=== PATIENT | female | born 2000 | race Caucasian/White ===

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

== ENCOUNTER 2024-01-02 11:00 | Outpatient (CLI) | payer OTHER, SELFPAY ==
--- NOTE | 2024-01-02 11:23 | XR_ITS ---
FINAL REPORT CLINICAL HISTORY: sob, cough COMPARISON: None FINDINGS: Two views of the chest were obtained. The heart size and pulmonary vascularity are within normal limits. The mediastinum is normal. No acute pulmonary abnormality is identified. There is no pneumothorax. The bony thorax is intact. IMPRESSION: No active cardiopulmonary disease. Reviewed, Interpreted and Dictated by Eber Mccain III, MD Transcribed by Beth Patterson Authenticated and . [facility]
[2024-01-02 11:46] LABS: Basophils % 0.4 % (0.1-2.0); Eosinophils # 0.1 K/mm3 (0.0-0.4); Eosinophils % 2.1 % (0.1-12.0); Hematocrit 39.9 % (37.0-47.0); Hemoglobin 13.4 g/dL (12.2-16.2); Lymphocytes # 1.7 K/mm3 (0.7-4.5); Lymphocytes % 25.6 % (10-50); Mean Corpuscular HGB Conc 33.7 g/dL (31.8-35.4); Mean Corpuscular Hemoglobin 30.4 pg (27.0-31.2); Mean Corpuscular Volume 90.4 fl (81-99); Mean Platelet Volume 7.4 fl (7.4-10.4); Monocytes # 0.3 K/mm3 (0.1-1.0); Monocytes % 3.9 % (1.7-9.3); Neutrophils # 4.6 K/mm3 (1.8-7.8); Neutrophils % 68.1 % (37.0-80.0); Platelet Count 333 K/mm3 (142-424); Red Blood Count 4.41 M/mm3 (4.20-5.40); Red Cell Distribution Width 14.2 % (11.5-17.5); White Blood Count 6.8 K/mm3 (4.8-10.8)
[2024-01-02 12:27] LABS: Alanine Aminotransferase 66 U/L (12-78); Albumin Level 4.7 g/dl (3.5-5.0); Albumin/Globulin Ratio 1.4 (1.1-1.8); Alkaline Phosphatase 95 U/L (38-126); Anion Gap 10.9 mEq/L (5-15); Aspartate Amino Transferase 47 U/L (14-36); Bilirubin,Total 0.6 mg/dl (0.2-1.3); Blood Urea Nitrogen 20 mg/dl (7-17); Calcium 9.5 mg/dl (8.4-10.2); Carbon Dioxide 26 mmol/L (22.0-30.0); Chloride 108 mmol/L (98-107); Chol/HDL Ratio 5.6 (1-3.5); Cholesterol 178 mg/dl (140-200); Estimated Glomerular Filt Rate 77 ml/min (>60); GFR (African American) 93 ML/MIN (>60); Globulin 3.4 g/dL (1.3-3.2); Glucose 116 mg/dl (74-100); HDL Cholesterol 32 mg/dl (40-60); Potassium 4.9 mmoL/L (3.5-5.1); Sodium 140 mmol/L (136-145); Total Protein,Serum 8.1 g/dl (6.3-8.2); Triglycerides 88 mg/dl (30-150); VLDL Cholesterol 18 mg/dL (0-40)
[2024-01-02 12:38] LABS: Direct LDL Cholesterol 114.81 mg/dL (100-129)
[2024-01-02 12:39] LABS: Hemoglobin A1C 5.6 % (4.0-6.0)
[2024-01-02 12:46] LABS: 25-OH Vitamin D, Total < 12.8 ng/mL (30-100)
[2024-01-02 12:58] LABS: Thyroid Stimulating Hormone 0.75 uIU/mL (0.465-4.68)
[2024-01-02 13:17] LABS: Vitamin B12 558 pg/mL (239-931)
== END 2024-01-02 23:59 ==
LOC: LAB 11:02
PROVIDERS: PCP Family Medicine; Visit Provider Family Medicine
DX: R06.02 Shortness of breath (principal); R05.8 Other specified cough; R01.1 Cardiac murmur, unspecified; E55.9 Vitamin D deficiency, unspecified; R73.09 Other abnormal glucose; E66.9 Obesity, unspecified; Z68.35 Body mass index [BMI] 35.0-35.9, adult
CPT/HCPCS: 36415; 71046; 80053; 80061; 82306; 82607; 83036; 84443; 85025

== ENCOUNTER 2024-01-09 12:05 | Outpatient (CLI) | payer OTHER, SELFPAY ==
[2024-01-09] MEDS: ALBUTEROL 0.083% 2.5 MG/3 ML NEB IH (14:15)
== END 2024-01-09 23:59 ==
LOC: RT 12:05
PROVIDERS: PCP Family Medicine; Visit Provider Family Medicine
DX: R06.02 Shortness of breath (principal); R05.9 Cough, unspecified
CPT/HCPCS: 94060; 94618; 94727; 94729

== ENCOUNTER 2024-01-20 10:06 | Outpatient (CLI) | payer OTHER, SELFPAY ==
--- NOTE | 2024-01-20 10:08 | CA_ITS ---
APPROVED REPORT EXAM: Comprehensive 2D, Doppler, and color-flow Echocardiogram Income Tax Consultant: RAGHAV Lopez, RVS Ht: 5 ft 2 in Wt: 193lbs BSA: 1.88 BP: 126/82 mmHg Indications: Murmur, SOB 2D Dimensions Left Atrium 3.10 cm LA Volume 27.20 mL LA Volume Index 14.10 mL/m2 (M/F) 16-34 M-Mode Dimensions RVDd 2.78 cm (0.9-2.6) LA Diam 3.67 cm (1.9-4.0) LVDd 3.69 cm (3.5-5.7) LVDs 2.65 cm (3.5-5.7) IVSd 1.51 cm (0.6-1.1) PWd 1.14 cm (0.6-1.1) EF (Teich) 55.40% EPSs 0.40 cm FS 28.20% EDV (Teich) 57.80 mL TAPSE 2.13 (<1.7) ESV (Teich) 25.80 mL LV Diastology E Decel Time 177 (160-240 msec) E/A Ratio 1.94 MED A' 6.40 cm/s LAT A' 7.80 cm/s Aortic Valve PATRICE Index 0.77 cm2/m2 AoV Peak Miles. 159.0 (50-130 cm/s) AO Peak GR. 10.10 mmHg AO Mean GR. 5.00 (<5 mmHg) AO VTI 35.9 (18-25 cm) PATRICE (VTI) 1.48 (2.5-4.5 cm2) Mitral Valve MV A Velocity 47.0 (40-130 cm/s) E/A Ratio 1.94 Tricuspid Valve TR P. Velocity 219.00 cm/s RAP Estimate 10.00 mmHg RVSP 29.30 mmHg Left Ventricle The left ventricle is normal size. The left ventricular systolic function is normal. The left ventricular ejection fraction is within the normal range. There is normal left ventricular wall thickness. There is normal LV segmental wall motion. The left ventricular diastolic function is normal. LVEF is 55%. Right Ventricle The right ventricle is normal size. The right ventricular systolic function is normal. Atria The left atrium size is normal. The right atrium size is normal. The interatrial septum is not well-visualized. Aortic Valve Aortic valve opens well. There is no aortic valvular stenosis. No aortic regurgitation is present. Mitral Valve The mitral valve is normal in structure. No evidence of mitral valve stenosis. There is no mitral valve regurgitation noted. Tricuspid Valve The tricuspid valve leaflets are thin and pliable. Trace tricuspid regurgitation. There is insufficient TR jet to estimate RVSP. Pulmonic Valve The pulmonary valve is normal in structure. Trace pulmonic regurgitation. Great Vessels The aortic root is normal in size. The ascending aorta is not well-visualized. The IVC is not well-visualized. Pericardium There is no pericardial effusion. Other Information Study Quality: Fair Conclusion Normal biventricular systolic function. No significant valvular stenosis or regurgitation. Electronically signed by : Akua Ahn MD 01/22/2024 11:37:52
== END 2024-01-20 23:59 ==
LOC: RT 10:08
PROVIDERS: PCP Family Medicine; Visit Provider Family Medicine
DX: R06.02 Shortness of breath (principal); R01.1 Cardiac murmur, unspecified; R05.9 Cough, unspecified
CPT/HCPCS: 93306

== ENCOUNTER 2025-04-12 01:46 | Emergency (ER) | payer OTHER, SELFPAY ==
[2025-04-12 02:03] VITALS: BP 133/89; PULSE 79; RESP 18; TEMP 36.6; O2SAT 99; BMI 34.5
--- NOTE | 2025-04-12 02:09 | XR_ITS ---
PROCEDURE INFORMATION: Exam: XR Left Ankle Exam date and time: 04/12/2025 2:24 AM Age: 24 years old Clinical indication: Pain; Ankle; Left; Additional info: Ankle injury TECHNIQUE: Imaging protocol: Radiologic exam of the left ankle. Views: 3 or more views. COMPARISON: No relevant prior studies available. FINDINGS: Bones/joints: There is no evidence of acute fracture or dislocation. Joint spaces appear preserved. Soft tissues: No significant soft tissue edema. No subcutaneous emphysema or radiopaque foreign bodies. IMPRESSION: No acute posttraumatic osseous injury.
[2025-04-12 02:30] VITALS: BP 133/70; PULSE 66; O2SAT 100
--- NOTE | 2025-04-12 03:55 | HMH.EDGENADL ---
Discharge Plan Disposition Patient Disposition: Home, Self-Care Condition: Good Prescriptions Prescriptions: No Action cholecalciferol (vitamin D3) 1,250 mcg (50,000 unit) capsule 1,250 mcg PO WEEKLY Qty: 5 10RF Referrals Follow up/Referrals: Provider,Referral, [Primary Care Provider] - See instructions Activity Restrictions/Add. Instructions Additional Instructions/Restrictions: You were evaluated in the ER and are appropriate for discharge at this time. Take Tylenol and ibuprofen if needed for pain, do not exceed the recommended dose on the bottle. Drink water and eat a small snack each time you take these medications to avoid side effects. Wear the provided brace if needed for support. Take the brace off multiple times a day and perform range of motion exercises as directed. Follow-up with your primary care doctor for reevaluation. Return to the ER with any new, worsening, or otherwise concerning symptoms. Clinical Impressions Clinical Impression: Ankle pain, left Print Language Print Language: Khmer Discharge ED Provider: Catina Callejas General Adult HPI General Chief complaint: Extremity Injury, Lower Stated complaint: Left ankle pain Time Seen by Provider: 04/12/25 03:15 Mode of Arrival: EMS Source of Information: Patient Description of Symptoms (Recalled from ER Triage Doc. by RN): Pt states she was walking dog on Friday and rolled her left ankle. Pt reports increased pain 8/10. No swelling or deformity noted. History of Present Illness HPI narrative: 24-year-old female presents to the ER with complaints of left ankle pain. Reportedly 2 days ago patient was walking her dog and rolled the left ankle. Patient has been ambulatory on the ankle since that time. Pain has not gone away and is described as 8 out of 10. Tonight patient decided to call 911 to come to the ER for ankle evaluation. EMS reports no swelling or deformity. No other traumatic findings, no other complaints or concerns. Patient reports no current medical problems, no pain in any area aside from the ankle. Related Data Previous Rx's ?Medication ?Instructions ?Recorded cholecalciferol (vitamin D3) 1,250 1,250 mcg PO WEEKLY #5 caps 02/02/24 mcg (50,000 unit) capsule Allergies Allergy/AdvReac Type Severity Reaction Status Date / Time amoxicillin (AMOXICILLIN) Allergy Intermediate I-RASH Verified 04/21/24 10:29 azithromycin (From ZITHROMAX) Allergy Intermediate Verified 04/21/24 10:29 [facility] Disclaimer: The information contained in this section may have been updated after the patient was seen, as this information can be updated by other users. Medical History Vitamin D deficiency Heart murmur Surgical History History of myringotomy History of tonsillectomy Family History Other Cancer Coronary artery disease Heart attack Hypertension Kidney disease Stroke Social History Smoking Status: Current every day smoker tobacco type: cigarettes smoking status start date: e years smoked: 6 smoking status stop date: 01/09/24 alcohol intake: never substance use type: denies use current occupational status: unemployed Travel in the last 8 weeks?: None household members: family housing: house Other Medical History Have you received the Flu Vaccine for this season: No Have you received the Pneumonia Vaccine: No ROS Obtained: Yes Systems reviewed as appropriate & no additional complaints except as documented Per HPI Physical Exam General General appearance: alert and in no apparent distress Head Head exam: atraumatic and normocephalic Eye Eye exam: Present PERRL and EOMI ENT ENT exam: Present mucous membranes moist Neck Neck exam: Present normal inspection and full ROM Chest Chest inspection: Present symmetric chest wall rise Respiratory Respiratory exam: Absent respiratory distress or stridor Cardiovascular Cardiovascular exam: Present regular rate and normal rhythm Extremities Exam Extremities exam: Present full ROM, tenderness (Mild tenderness to palpation diffusely throughout the ankle, Achilles tendon intact, no tenderness over the Achilles, patient has tenderness over both malleoli as well as the anterior/superior portion of the ankle and foot, no tenderness over the fifth metatarsal), normal capillary refill and other (Neurovascularly intact, no swelling, deformity, or bruising); Absent joint swelling Neurological Exam Neurological exam: Present alert and oriented X3; Absent motor sensory deficit Psychiatric Psychiatric exam: Present normal affect and normal mood Skin Skin exam: Present warm and dry Medical Decision Making Medical Records Medical records reviewed: Yes I reviewed the patient's medical records. Screening: Per USPSTF and CDC recommendations, given the prevalence of disease in our region, it is our hospital?s policy to screen for HIV and viral Hepatitis for all patients aged 18 and over and those with ongoing risk factors. Qu[place] Inquiry Pt receiving controlled substance: No Vital Signs: 04/12/25 02:03 04/12/25 02:30 Temperature 97.9 F Temperature Source Oral Pulse Rate 66 Pulse Rate [Left] 79 Respiratory Rate 18 Blood Pressure 133/70 Blood Pressure [Right Arm] 133/89 Blood Pressure Mean [Right Arm] 103 Blood Pressure Source [Right Arm] Automatic Cuff 02 Sat by Pulse Oximetry 99 100 Oxygen Delivery Method Room Air Room Air Orders (Tests/Meds): ORDERS Category Date Time Status Ankle XR - Left minimum 3 Views [XR ankle LT min 3V] Exams 04/12/25 02:09 Completed Stat Medical Decision Narrative: In summary, this 24-year-old female presents to the emergency department today with left ankle pain. On initial evaluation patient is hemodynamically stable, afebrile, physical exam is overall reassuring with no deformity, swelling, or bruising, however there is mild diffuse tenderness around the sides in front of the ankle, Achilles tendon intact, neurovascularly intact, no tenderness over the fifth metatarsal. Based on [place] ankle rules I have very low suspicion for ankle fracture however patient came concerned about fracture so x-ray was ordered. Differential diagnosis includes but is not limited to sprain, strain, soft tissue injury, much lower suspicion for fracture or dislocation. Ankle x-ray was personally interpreted and does not demonstrate acute osseous injury. I initially thought there could be a small abnormality of the lateral malleolus however this is only visible on 1 view and there does not appear to be a cortical defect. See radiology read for final interpretation. Patient continues to be stable on reassessment. Aircast brace was applied to the left ankle for support. Patient was given instructions on range of motion exercises. She stated she was ready to go home and is going to be walking home. This further decreases my concern for acute or dangerous injury since patient is volunteering to walk back home after being brought in by ambulance. Patient was given instructions on symptomatic management, follow up instructions, and return precautions for the emergency department. Patient indicated understanding and was discharged in stable condition. Critical Care Critical Care Time Critical Care Time: No
[2025-04-12 03:58] VITALS: BP 118/73; PULSE 68; RESP 16; TEMP 36.3; O2SAT 98
== END 2025-04-12 04:04 | disposition home or self-care (01) ==
PROVIDERS: Emergency Provider Emergency Medicine
DX: S99.912A Unspecified injury of left ankle, initial encounter (principal); M25.572 Pain in left ankle and joints of left foot; X50.1XXA Overexertion from prolonged static or awkward postures, initial encounter
CPT/HCPCS: 73610; 99283